=== PATIENT | male | born 1945 | race Caucasian/White ===

== ENCOUNTER 2019-05-28 16:59 | Inpatient (IN) | payer OTHER ==
[~2019-05-28] VITALS: Ht 172.7 cm; Wt 68.0 kg
[2019-05-28] MEDS ORDERED: METF-440 PO (17:33)
[2019-05-28] MEDS ORDERED: SIMV-46 PO (17:33)
[2019-05-28] MEDS ORDERED: LOSA100T31 PO (17:33)
[2019-05-28] MEDS ORDERED: AMLO5TAB9 PO (17:33)
[2019-05-28] MEDS ORDERED: DONE5TAB34 PO (17:33)
[2019-05-28] MEDS ORDERED: VOLTAREN 1% TOP (17:33)
[2019-05-28] MEDS ORDERED: MEMA10TA PO (17:33)
[2019-05-28] MEDS ORDERED: FLUT9.9S NS (17:33)
--- NOTE | 2019-05-28 18:49 | NUR ---
Patient transported to CT in stable condition.
--- NOTE | 2019-05-28 18:55 | NUR ---
Patient back from ct scan with no distress noted.
--- NOTE | 2019-05-28 19:35 | NUR ---
Medically cleared by Dr Cochran.
--- NOTE | 2019-05-28 19:58 | NUR ---
Patient's 5150 hold is dated on 05/28/19 at 2235. Wrong date was placed by person writing hold. Date crossed out with initial. Called Doug Cobian from PET Team and informed him of date crossed out with intial. Per Doug Cobian ok to admit to [facility] with hold and he will inform Shanti Loja about hold.
[2019-05-28 20:00] VITALS: BP 137/74
[2019-05-28] MEDS ORDERED: MAG HYDROX/AL HYDROX/SIMETH 30 ML LIQUID UDC PO PRN (20:30)
[2019-05-28] MEDS ORDERED: MAGNESIUM HYDROXIDE 30 ML LIQUID UDC PO PRN (20:30)
[2019-05-28] MEDS ORDERED: BLOOD SUGAR DIAGNOSTIC 1 EACH STRIP VI ONE (20:30)
[2019-05-28] MEDS: TEMAZEPAM 7.5 MG CAPSULE PO PRN (22:01)
[2019-05-28] MEDS: ACETAMINOPHEN 325 MG TABLET PO PRN (22:01)
--- NOTE | 2019-05-29 00:17 | NUR ---
received to care at 2030, from the emergency room, on a 72 hour hold for danger to self/ gravely disabled, a transfer from [facility]. according to the hold, his took him to his doctors appointment, and he told the doctor that he was feeling suicidal, and had thoughts of hurting himself. according to his , this is the first time she had heard anything like this, before; no history of suicide attempts or ideations in the past. he does suffer from dementia, and has had visual hallucinations for at least several years, usually involving seeing children in various parts of his house, when they are not there. upon arrival on the unit, he was pleasant, but very anxious, and confused. unable to provide much meaningful history. he seemed to calm down slightly. after talking to his on the phone. he was given a snack, was assisted to bed, and given a hospital gown. he remained anxious, pacing around the room, unable to calm down. he was given PRN restoril at 2201, and finally went to sleep, around 2330. as of now, he remains asleep. no distress noted. will continue to monitor closely.
--- NOTE | 2019-05-29 06:00 | NUR ---
slept 6.5 hours. continues to sleep. no distress noted.
[2019-05-29 07:30] VITALS: BP 106/64
[2019-05-29] MEDS ORDERED: MEMANTINE HCL 10 MG TABLET PO SCH (09:00)
[2019-05-29] MEDS: METFORMIN HCL 500 MG TABLET PO SCH ×2 (09:21→16:33)
[2019-05-29] MEDS: LOSARTAN POTASSIUM 50 MG TABLET PO SCH (09:22)
[2019-05-29] MEDS: AMLODIPINE 5 MG TABLET PO SCH (09:22)
[2019-05-29 16:00] VITALS: BP 136/58
[2019-05-29 20:24] VITALS: BP 128/58
[2019-05-29] MEDS ORDERED: DONEPEZIL 5 MG TABLET PO SCH (21:00)
[2019-05-29] MEDS: risperiDONE 0.5 MG TABLET PO SCH (21:01)
[2019-05-29] MEDS: SIMVASTATIN 20 MG TABLET PO SCH (21:01)
[2019-05-29] MEDS: MIRTAZAPINE 15 MG TABLET PO SCH (21:01)
[2019-05-29] MEDS: RIVASTIGMINE TARTRATE 1.5 MG CAPSULE PO SCH (21:01)
--- NOTE | 2019-05-29 22:00 | NUR ---
received to care, isolating by self in room, appearing disorganized, pacing about, but pleasant upon approach, and easy to redirect. compliant with medications, and staff direction. as of 2199, he remains awake, and restless. will continue to monitor closely.
[2019-05-29] MEDS: ACETAMINOPHEN 325 MG TABLET PO PRN (22:12)
[2019-05-29] MEDS: TEMAZEPAM 7.5 MG CAPSULE PO PRN (22:13)
--- NOTE | 2019-05-29 22:13 | NUR ---
PRN restoril given for insomnia
--- NOTE | 2019-05-29 23:20 | NUR ---
appears to be asleep. no distress noted.
--- NOTE | 2019-05-30 05:58 | NUR ---
slept 4.5 hours. continues to sleep. no distress noted.
[2019-05-30 07:59] VITALS: BP 146/68
[2019-05-30] MEDS ORDERED: DEXTROSE 50% 50 ML DISP.SYRIN IV PRN (09:15)
[2019-05-30] MEDS: AMLODIPINE 5 MG TABLET PO SCH (09:22)
[2019-05-30] MEDS: METFORMIN HCL 500 MG TABLET PO SCH ×2 (09:22→17:33)
[2019-05-30] MEDS: risperiDONE 0.5 MG TABLET PO SCH ×2 (09:22→20:52)
[2019-05-30] MEDS: RIVASTIGMINE TARTRATE 1.5 MG CAPSULE PO SCH ×2 (09:22→20:52)
[2019-05-30] MEDS: LOSARTAN POTASSIUM 50 MG TABLET PO SCH (09:22)
[2019-05-30] MEDS: BLOOD SUGAR DIAGNOSTIC 1 EACH STRIP VI SCH ×3 (12:01→21:04)
[2019-05-30] MEDS: INSULIN REGULAR, HUMAN 300 UNIT/3 ML VIAL SQ PRN ×2 (12:06→21:14)
--- NOTE | 2019-05-30 12:38 | NUR ---
Initial discharge Plan: Patient lives at home with his and children [address] [place] [address] ([phone]). Patient's , Estefani Izquierdo ([phone]) is aware and will be picking up the patient and taking him home when he is ready for discharge. MARIELLE will continue to work with pt, family, and MD to ensure a safe and proper discharge plan.
--- NOTE | 2019-05-30 13:22 | NUR ---
Social Work Note/UR Insurance Note: refuge worker contacted Ml Watt family day care provider with [facility] at [phone] to give verbal clinicals but play writer was unavailable. refuge worker left a voicemail to call back. refuge worker will follow up.
[2019-05-30 17:19] VITALS: BP 93/51
[2019-05-30 20:31] VITALS: BP 137/61
[2019-05-30] MEDS: SIMVASTATIN 20 MG TABLET PO SCH (20:52)
[2019-05-30] MEDS: MIRTAZAPINE 15 MG TABLET PO SCH (20:52)
--- NOTE | 2019-05-30 22:00 | NUR ---
received to care, appearing disorganized, pacing about, but pleasant upon approach, and easy to redirect. compliant with medications, and staff direction. as of 2199, he remains awake, and restless. will continue to monitor closely.
[2019-05-30] MEDS: TEMAZEPAM 7.5 MG CAPSULE PO PRN (22:30)
[2019-05-30] MEDS: ACETAMINOPHEN 325 MG TABLET PO PRN (22:30)
--- NOTE | 2019-05-30 22:30 | NUR ---
PRN restoril given for insomnia
--- NOTE | 2019-05-30 23:00 | NUR ---
appears to be asleep. no distress noted.
--- NOTE | 2019-05-31 06:00 | NUR ---
slept 6.15 hours. continues to sleep. no distress noted.
[2019-05-31] MEDS: BLOOD SUGAR DIAGNOSTIC 1 EACH STRIP VI SCH ×4 (06:29→20:11)
[2019-05-31 07:30] VITALS: BP 119/64
--- NOTE | 2019-05-31 07:30 | NUR ---
Confused, sitting at the edge of bed, Oriented to name, able to verbalized needs.
[2019-05-31 07:39] LABS: BASOPHILS # (AUTO) 0.1 K/uL (0.0-8.0); EOSINOPHILS # (AUTO) 0.1 K/uL (0.0-0.7); EOSINOPHILS % (AUTO) 1.3 % (0.0-7.0); HEMOGLOBIN 10.9 g/dL (12.5-16.3); LYMPHOCYTES # (AUTO) 2.5 K/uL (20.0-40.0); LYMPHOCYTES % (AUTO) 42.2 % (20.5-51.5); MEAN CORPUSCULAR HEMOGLOBIN 29.7 uug (23.8-33.4); MEAN CORPUSCULAR HGB CONC 33 g/dL (32.5-36.3); MEAN CORPUSCULAR VOLUME 89.9 fL (73.0-96.2); MONOCYTES # (AUTO) 0.4 K/uL (2.0-10.0); MONOCYTES % (AUTO) 6.7 % (0.0-11.0); NEUTROPHILS # (AUTO) 2.9 K/uL (1.8-8.9); NEUTROPHILS % (AUTO) 48.8 % (38.5-71.5); PLATELET COUNT (AUTO) 209 K/uL (152-348); RED BLOOD CELL COUNT(AUTO) 3.68 MIL/uL (4.06-5.63)
[2019-05-31 07:52] LABS: CREATININE 0.9 mg/dL (0.6-1.3); MAGNESIUM 2.3 mg/dL (1.8-2.4); PHOSPHOROUS 3.6 mg/dL (2.5-4.9); POTASSIUM 4.7 mmol/L (3.5-5.1)
[2019-05-31 07:58] LABS: THYROID STIMULATING HORMONE 2.415 mIU/mL (0.358-3.740)
[2019-05-31] MEDS: METFORMIN HCL 500 MG TABLET PO SCH ×2 (08:57→17:01)
[2019-05-31] MEDS: LOSARTAN POTASSIUM 50 MG TABLET PO SCH (08:57)
[2019-05-31] MEDS: RIVASTIGMINE TARTRATE 1.5 MG CAPSULE PO SCH ×2 (08:57→20:07)
[2019-05-31] MEDS: AMLODIPINE 5 MG TABLET PO SCH (08:58)
[2019-05-31] MEDS: risperiDONE 0.5 MG TABLET PO SCH ×2 (08:58→20:06)
[2019-05-31] MEDS: INSULIN REGULAR, HUMAN 300 UNIT/3 ML VIAL SQ PRN ×3 (12:23→20:13)
[2019-05-31 15:50] VITALS: BP 90/48
--- NOTE | 2019-05-31 15:57 | NUR ---
UR Note: spout worker contacted Mleun Watt cna caregiver with [facility] at [phone] to give verbal clinicals regarding patient's current mental status, medications, discharge plans, and request for 5250. Ml stated she will speak to their doctor and give this keno writer a call back. Addendum: 05/31/19 at 1626 by BILLY DAVID Patient is authorized for 4 additional days until Tuesday June 04, 2019.
--- NOTE | 2019-05-31 16:11 | NUR ---
Firearms Report ([employer]): Sheep Or Calf Grader completed and submitted a [employer] firearms report for 5150 grave disability and danger to himself certification. A copy of report has been placed in patient chart.
--- NOTE | 2019-05-31 16:19 | NUR ---
Family Contact: child welfare caseworker spoke with Carol Izquierdo pt's daughter ([phone]) regarding patient's current mental status and compliance with treatment, and no plan for discharge yet.
--- NOTE | 2019-05-31 17:50 | NUR ---
Confused, looking for his eyeglasses. Redirected to his room and reoriented
[2019-05-31] MEDS: MIRTAZAPINE 15 MG TABLET PO SCH (20:06)
[2019-05-31] MEDS: SIMVASTATIN 20 MG TABLET PO SCH (20:07)
[2019-05-31 20:10] VITALS: BP 106/82
--- NOTE | 2019-05-31 21:20 | NUR ---
Received to care. A & O x 1. Confused but pleasant. Intrusive to staff, but easily redirectable. Patient is anxious about getting his children to school on time. Compliant with medications. Will continue to monitor.
[2019-06-01] MEDS: BLOOD SUGAR DIAGNOSTIC 1 EACH STRIP VI SCH ×4 (06:35→20:41)
[2019-06-01 07:30] VITALS: BP 117/62
[2019-06-01] MEDS: AMLODIPINE 5 MG TABLET PO SCH (08:34)
[2019-06-01] MEDS: risperiDONE 0.5 MG TABLET PO SCH ×2 (08:34→20:41)
[2019-06-01] MEDS: RIVASTIGMINE TARTRATE 1.5 MG CAPSULE PO SCH ×2 (08:34→20:41)
[2019-06-01] MEDS: METFORMIN HCL 500 MG TABLET PO SCH ×2 (08:34→16:30)
[2019-06-01] MEDS: LOSARTAN POTASSIUM 50 MG TABLET PO SCH (08:35)
[2019-06-01] MEDS: INSULIN REGULAR, HUMAN 300 UNIT/3 ML VIAL SQ PRN ×2 (16:36→20:43)
[2019-06-01 16:54] VITALS: BP 110/56
[2019-06-01 20:13] VITALS: BP 98/50
[2019-06-01] MEDS: SIMVASTATIN 20 MG TABLET PO SCH (20:41)
[2019-06-01] MEDS: MIRTAZAPINE 15 MG TABLET PO SCH (20:41)
[2019-06-01 20:49] VITALS: BP 102/60
--- NOTE | 2019-06-02 05:50 | NUR ---
Patient slept 4 hours. Up and down during the night. Very confused and needed constant reorientation. No acute issues or distress noted. Continuing to monitor for safety.
[2019-06-02] MEDS: BLOOD SUGAR DIAGNOSTIC 1 EACH STRIP VI SCH ×4 (06:06→21:26)
[2019-06-02 07:30] VITALS: BP 121/52
[2019-06-02] MEDS: LOSARTAN POTASSIUM 50 MG TABLET PO SCH (08:23)
[2019-06-02] MEDS: risperiDONE 0.5 MG TABLET PO SCH ×2 (08:23→20:51)
[2019-06-02] MEDS: METFORMIN HCL 500 MG TABLET PO SCH ×2 (08:23→16:22)
[2019-06-02] MEDS: AMLODIPINE 5 MG TABLET PO SCH (08:23)
[2019-06-02] MEDS: INSULIN REGULAR, HUMAN 300 UNIT/3 ML VIAL SQ PRN ×3 (08:25→16:22)
[2019-06-02] MEDS: RIVASTIGMINE TARTRATE 1.5 MG CAPSULE PO SCH ×2 (08:35→20:51)
[2019-06-02 16:03] VITALS: BP 102/53
[2019-06-02] MEDS: LORAZEPAM 1 MG TABLET PO PRN ×2 (16:21→23:35)
[2019-06-02 20:00] VITALS: BP 106/56
[2019-06-02] MEDS: MIRTAZAPINE 15 MG TABLET PO SCH (20:51)
[2019-06-02] MEDS: SIMVASTATIN 20 MG TABLET PO SCH (20:51)
[2019-06-02] MEDS: ACETAMINOPHEN 325 MG TABLET PO PRN (22:13)
[2019-06-02] MEDS: TEMAZEPAM 7.5 MG CAPSULE PO PRN (22:14)
--- NOTE | 2019-06-02 22:14 | NUR ---
remains restless, pacing around his room, intrusive with peers, difficult to redirect. pt was placed in ilsa chair for safety. fluids and snack were given. PRN restoril was given at this time. will continue to monitor closely.
--- NOTE | 2019-06-02 23:35 | NUR ---
remains up in ilsa chair, confused, and restless, difficult to redirect. pt wa stoileted, and PRN ativan was given. will continue to monitor closely.
--- NOTE | 2019-06-03 01:15 | NUR ---
appears calmer. assisted to bed. no distress noted.
--- NOTE | 2019-06-03 01:45 | NUR ---
appears to be asleep. no distress noted.
--- NOTE | 2019-06-03 05:00 | NUR ---
slept 3.25 hours. is now awake. assited with am care, and up in the ger chair. no distress noted.
[2019-06-03] MEDS: BLOOD SUGAR DIAGNOSTIC 1 EACH STRIP VI SCH ×4 (06:08→20:23)
[2019-06-03 08:04] VITALS: BP 113/57
[2019-06-03] MEDS: risperiDONE 0.5 MG TABLET PO SCH ×2 (08:30→20:17)
[2019-06-03] MEDS: LOSARTAN POTASSIUM 50 MG TABLET PO SCH (08:30)
[2019-06-03] MEDS: METFORMIN HCL 500 MG TABLET PO SCH ×2 (08:30→16:45)
[2019-06-03] MEDS: RIVASTIGMINE TARTRATE 1.5 MG CAPSULE PO SCH ×2 (08:30→20:16)
[2019-06-03] MEDS: AMLODIPINE 5 MG TABLET PO SCH (08:31)
[2019-06-03 15:53] VITALS: BP 99/54
--- NOTE | 2019-06-03 15:57 | NUR ---
UR Note: medical office worker contacted Ml [facility] MGR with [facility] at [phone] to inquire about home health services for the patient for when he is ready for discharge. Left a voicemail.
[2019-06-03] MEDS: INSULIN REGULAR, HUMAN 300 UNIT/3 ML VIAL SQ PRN (16:53)
[2019-06-03 20:00] VITALS: BP 100/54
[2019-06-03] MEDS: SIMVASTATIN 20 MG TABLET PO SCH (20:17)
[2019-06-03] MEDS: MIRTAZAPINE 15 MG TABLET PO SCH (20:19)
[2019-06-03] MEDS ORDERED: chlorproMAZINE 25 MG TABLET PO SCH (21:00)
--- NOTE | 2019-06-03 23:00 | NUR ---
received to care, up in ilsa chair, sleeping intermittently. compliant with medications. sandwich, puddings and juices fed to patient. tolerated well. assisted to bed, around 2200. as of 2300, he remains asleep. no distress noted. will continue to monitor closely.
--- NOTE | 2019-06-04 06:00 | NUR ---
slept 5.75 hours. continues to sleep. no distress noted.
[2019-06-04] MEDS: BLOOD SUGAR DIAGNOSTIC 1 EACH STRIP VI SCH ×3 (06:07→12:52)
[2019-06-04] MEDS: AMLODIPINE 5 MG TABLET PO SCH (09:00)
[2019-06-04] MEDS: RIVASTIGMINE TARTRATE 1.5 MG CAPSULE PO SCH ×3 (09:00→20:22)
[2019-06-04] MEDS: METFORMIN HCL 500 MG TABLET PO SCH ×3 (09:00→16:07)
[2019-06-04] MEDS: LOSARTAN POTASSIUM 50 MG TABLET PO SCH (09:00)
[2019-06-04] MEDS: chlorproMAZINE 25 MG TABLET PO SCH ×3 (09:00→20:42)
[2019-06-04] MEDS: INSULIN REGULAR, HUMAN 300 UNIT/3 ML VIAL SQ PRN (12:57)
--- NOTE | 2019-06-04 13:22 | NUR ---
UR Note: sawmill worker left a voicemail for updated clinicals for review with Ml jackson MGR with [facility] at [phone] regarding patient's recent changes in medication, mental status, and discharge plan. Awaiting a call back.
[2019-06-04 16:00] VITALS: BP 94/50
[2019-06-04 20:21] VITALS: BP_SYST 104; BP_SYST 92; BP_DIAS 50; BP_DIAS 62
[2019-06-04] MEDS: SIMVASTATIN 20 MG TABLET PO SCH (20:22)
[2019-06-04] MEDS: MIRTAZAPINE 15 MG TABLET PO SCH (20:22)
--- NOTE | 2019-06-05 05:50 | NUR ---
Patient slept 4.30 hours. In bed asleep at this time. Continuing to monitor for safety and continuing to reorient patient to his environment.
[2019-06-05 07:30] VITALS: BP 97/46
[2019-06-05] MEDS: chlorproMAZINE 25 MG TABLET PO SCH ×2 (08:25→20:11)
[2019-06-05] MEDS: METFORMIN HCL 500 MG TABLET PO SCH ×2 (08:25→16:02)
[2019-06-05] MEDS: AMLODIPINE 5 MG TABLET PO SCH (08:26)
[2019-06-05] MEDS: LOSARTAN POTASSIUM 50 MG TABLET PO SCH (08:26)
[2019-06-05] MEDS: RIVASTIGMINE TARTRATE 1.5 MG CAPSULE PO SCH ×2 (08:28→20:10)
[2019-06-05 15:50] VITALS: BP 95/41
[2019-06-05] MEDS: SIMVASTATIN 20 MG TABLET PO SCH (20:10)
[2019-06-05] MEDS: ACETAMINOPHEN 325 MG TABLET PO PRN (20:10)
[2019-06-05] MEDS: MIRTAZAPINE 15 MG TABLET PO SCH (20:11)
[2019-06-05 20:48] VITALS: BP 101/46
[2019-06-05] MEDS: TEMAZEPAM 7.5 MG CAPSULE PO PRN (22:55)
--- NOTE | 2019-06-06 01:10 | NUR ---
PATIENT NOTED WITH PERSISTENT COUGH. DR SINGH WAS NOTIFIED AND NEW ORDER OBTAINED TO ADMINISTER ROBITUSSIN DM 10ML Q4HRS PRN FOR COUGH. FOR AN ORDER OF A CHEST X RAY, HE STATED TO CHECK WITH THE MORNING MEDICAL TEAM FOR THIS ORDER. PATIENT ALSO HAVE LABS IN THE AM (CBC, CMP). ORDER IS NOTED. WILL CONTINUE TO MONITOR.
[2019-06-06] MEDS ORDERED: GUAIFENESIN/DEXTROMETHORPHAN 5 ML UDC PO PRN (01:15)
[2019-06-06] MEDS ORDERED: GUAIFENESIN/DEXTROMETHORPHAN 5 ML UDC ONE (01:25)
[2019-06-06 07:18] LABS: BASOPHILS % (AUTO) 0.5 % (0.0-2.0); EOSINOPHILS % (AUTO) 0.1 % (0.0-7.0); HEMATOCRIT 28.9 % (36.7-47.1); HEMOGLOBIN 9.8 g/dL (12.5-16.3); LYMPHOCYTES # (AUTO) 0.3 K/uL (20.0-40.0); LYMPHOCYTES % (AUTO) 6.4 % (20.5-51.5); MEAN CORPUSCULAR HEMOGLOBIN 30.3 uug (23.8-33.4); MEAN CORPUSCULAR HGB CONC 34 g/dL (32.5-36.3); MEAN CORPUSCULAR VOLUME 89.4 fL (73.0-96.2); MONOCYTES # (AUTO) 0.4 K/uL (2.0-10.0); MONOCYTES % (AUTO) 7.8 % (0.0-11.0); NEUTROPHILS # (AUTO) 4.4 K/uL (1.8-8.9); NEUTROPHILS % (AUTO) 85.2 % (38.5-71.5); PLATELET COUNT (AUTO) 148 K/uL (152-348); RED BLOOD CELL COUNT(AUTO) 3.24 MIL/uL (4.06-5.63); WHITE BLOOD COUNT (AUTO) 5.1 K/uL (3.6-10.2)
[2019-06-06 07:30] LABS: CARBON DIOXIDE 26 mmol/L (21-32); CHLORIDE 106 mmol/L (98-107); CREATININE 1.2 mg/dL (0.6-1.3); GLUCOSE 118 mg/dL (74-106); PHOSPHOROUS 3.3 mg/dL (2.5-4.9); UREA NITROGEN, BLOOD 45 mg/dL (7-18)
[2019-06-06 07:59] VITALS: BP 115/69
[2019-06-06 09:00] VITALS: BP 115/69
[2019-06-06] MEDS: AMLODIPINE 5 MG TABLET PO SCH (09:00)
[2019-06-06] MEDS: LOSARTAN POTASSIUM 50 MG TABLET PO SCH (09:00)
[2019-06-06] MEDS: METFORMIN HCL 500 MG TABLET PO SCH (09:00)
[2019-06-06] MEDS: chlorproMAZINE 25 MG TABLET PO SCH (09:00)
[2019-06-06] MEDS: RIVASTIGMINE TARTRATE 1.5 MG CAPSULE PO SCH (09:00)
--- NOTE | 2019-06-06 11:07 | NUR ---
UR Note: farm worker received a call from Ml Watt child care lead teacher with [facility] at [phone] requesting to do a peer to peer with Dr. De Oliveira in order to authorize more days. Toll Line Repairer spoke with Dr. De Oliveira who stated that the patient will be discharged today back home. Toll Line Repairer then called and left a voicemail for the watch case polisher Ml to inform of this information.
--- NOTE | 2019-06-06 11:32 | NUR ---
Discharge Note: Patient will be discharged back home today [address] [place] [address] [place] [address]. Patients son, Hermelindo Izquierdo ([phone]) will be providing transportation for the patient and will be picking the pt up at 12:00pm. Patient is alert and oriented times 2, denies suicidal or homicidal ideation, and is unable to plan for self-care. Patient presents with calm mood and flat affect. Patients , Carol Izquierdo ([phone]) is very supportive and is aware and agreeable with with discharge plans. Patient will be following up with his primary care physician, Dr. John ([phone]) [address] [place] [address] and has a follow up appointment scheduled for June 10, 2019 at 11:15AM. Patient will be receiving Home Health Services from [facility], [facility]. [address] [address] ([phone]) and Dr. Todd office will be getting authorization for the patients home health services. Patient is referred for psychiatric follow up [facility] [address] [place] [address] ([phone]) and has an appointment scheduled for Tuesday July 30, 2019 at 11:30AM. Patient was also provided with additional resources to [facility] [address] [place] [address] ([phone]), to [facility] Line ([phone]), and the National Suicide Prevention Lifeline (875-227-6659).
--- NOTE | 2019-06-06 11:34 | NUR ---
Pharmacy Information: Patient's pharmacy is [facility] in [place], [place] ([phone]).
--- NOTE | 2019-06-06 12:15 | NUR ---
Patient discharged in stable condition to his home to his and son. Patient was picked up by his son and will be taken home by son in a private car. patient denies SI/HI on time of discharge. Patient to have follow up psychiatric care and primary medical care at appointments set up by social media sr strategy manager. Patient and patient's family provided with education about follow up appointments, prescribed medication, and discharge instructions. patient escorted off unit with JEWELL.
--- NOTE | 2019-06-06 12:25 | NUR ---
Patient's prescriptions were called in to the patient's pharmacy [facility] ([phone])
[2019-06-06] MEDS ORDERED: LOSA25TA27 PO (12:45)
--- NOTE | 2019-06-10 14:05 | NUR ---
UR Note: farmworker egg producing farm received a call from Ml Watt career resource technician with [facility] at ([phone]) for discharge summary. farmworker egg producing farm gave a verbal report regarding patient's discharge back home with the appropriate resources given to the patient.
== END 2019-06-06 12:15 | disposition home health service (06) | DRG 885 ==
LOC: ER 17:02 → GPS 20:00
PROVIDERS: ADMIT Psychiatry & Neurology Psychiatry; ATTEND Student in an Organized Health Care Education/Training Program
DX: F32.3 Major depressive disorder, single episode, severe with psychotic features (principal); G93.41 Metabolic encephalopathy; E78.5 Hyperlipidemia, unspecified; F03.90 Unspecified dementia, unspecified severity, without behavioral disturbance, psychotic disturbance, mood disturbance, and anxiety; E11.9 Type 2 diabetes mellitus without complications; Z79.84 Long term (current) use of oral hypoglycemic drugs; Z79.899 Other long term (current) drug therapy; I10 Essential (primary) hypertension
CPT/HCPCS: 36415; 70450; 71045; 83735; 84100; 84443; 85025; 93005; A4663; J1815; Q0161